=== PATIENT | female | born 1985 | race Hispanic/Latino ===

== ENCOUNTER 2017-12-21 16:35 | Emergency (ER) | payer SELFPAY ==
[2017-12-21 17:17] LABS: APPEARANCE,URINE Clear (CLEAR); BILIRUBIN,URINE Negative (NEGATIVE); COLOR,URINE Yellow (YELLOW); GLUCOSE, URINE (UA) Negative (NEGATIVE); KETONES,URINE Trace mg/dL (NEGATIVE); LEUKOCYTE ESTERASE ,URINE Negative (NEGATIVE); NITRATE,URINE Negative (NEGATIVE); OCCULT BLOOD,URINE Negative (NEGATIVE); PH,URINE 6.5 (5.0-8.0); PROTEIN,URINE Trace (NEGATIVE)
[2017-12-21 17:19] LABS: HCG,QUAL RESULT NEGATIVE (NEGATIVE)
[2017-12-21 18:03] LABS: RAPID GROUP A STREP NEGATIVE (NEGATIVE)
== END 2017-12-21 18:19 | disposition home or self-care (01) ==
LOC: EDH 16:35
DX: J09.X2 Influenza due to identified novel influenza A virus with other respiratory manifestations (principal); Z90.49 Acquired absence of other specified parts of digestive tract
CPT/HCPCS: 81003; 81025; 87804; 87880